=== PATIENT | male | born 1995 | race Caucasian/White ===

== ENCOUNTER 2024-01-29 11:11 | Emergency (ER) | payer SELFPAY ==
[2024-01-29 11:13] VITALS: BP 150/99
--- NOTE | 2024-01-29 12:52 | ED.GENMED ---
History of Present Illness
General
Chief Complaint: Skin Surface Trauma
Time Seen by Provider: 01/29/24 12:01
History of Present Illness
History of Present Illness:
28-year-old male presents to the emergency department for evaluation of a left thumb laceration sustained when attempting to slice paper with a large paper slicer. Bleeding is controlled with pressure. Last tetanus is unknown
Review of Systems
Review of Systems
Allergies reviewed?: Yes
All Other Systems: ROS reviewed and negative except as documented in HPI and ROS
Phy Exam
Physical Exam
Physical Exam:
GEN: Well appearing, NAD, WDWN
HEENT: Oral mucosa moist, no scleral icterus
Cardiac: Regular rate
Lung: No respiratory distress, no tachypnea
MSK: No gross deformity or injuries
Skin: Good color, no pallor or jaundice, no rashes. 1.5 cm curvilinear laceration through the distal aspect of the left thumb through the nailbed, no evidence of osseous injury on wound exploration, no foreign body
Neuro: AO x3, moves all extremities freely
Psych: Calm, cooperative
Course
Vital Signs
Initial and Last Documented VS:
Initial Vital Signs
Temp Pulse Resp BP Pulse Ox
98.2 F 63 16 150/99 98
01/29/24 11:13 01/29/24 11:13 01/29/24 11:13 01/29/24 11:13 01/29/24 11:13
Last Documented Vital Signs
Temp Pulse Resp BP Pulse Ox
98.2 F 63 16 150/99 98
01/29/24 11:13 01/29/24 11:13 01/29/24 11:13 01/29/24 11:13 01/29/24 11:13
Procedures
Laceration Closure
Left Thumb:
Status of Wound: clean
Size of Wound in cm: 1.5
Description of Wound Edges: sharp
Preparation: cleaned with soap & water
Anesthesia: 1% Lidocaine
Wound exploration: explored to base- no FB and no tendon involvement
Type of Closure: single layer closure
Skin Closure Material: 5-0 nylon
Number of sutures: 5
MDM/Problems Addressed
MDM/Problems Addressed:
Patient declines tetanus on account of Cost concerns due to lack of insurance which is not unreasonable given this is a low risk wound for tetanus exposure. No evidence of osseous injury on wound exploration, no indication for x-rays.
*Critical Care Note
Total Time (30-74mins, 75-104mins- exclusive of procedures): Not Applicable
ED Attending Note
-
Portions of this chart may have been created with voice recognition software.� Occasional wrong word or��sound alike� substitutions may have occurred due to the inherent limitations of voice recognition software.
Discharge Plan
Departure
Patient Disposition: Home (Routine Discharge)
Date of Disposition: 01/29/24
Time of Disposition: 12:52
Patient with high blood pressure during this ER visit?: No
Discharge Problem:
Laceration of left thumb
Instructions: Laceration Repair With Stitches (DC)
Referrals:
UNKNOWN - PT DOES,NOT KNOW [Family Provider] -
Activity Restrictions/Additional Instructions:
Keep the wound dry for the next 24 hours and then wash gently with soap and water
Suture removal in 7 to 10 days
Interventions
Interventions:
*Risk Screen - Suicide Last Done: 01/29/24 11:13
*Neglect/Abuse Screening Last Done: 01/29/24 11:13
*Nursing Disposition Last Done: 01/29/24 13:05
ED-Skin Assessment Last Done: 01/29/24 12:28
Discharge Date and Time
Discharge Date/Time: 01/29/24 13:05
Print Language: ARABIC
== END 2024-01-29 13:05 | disposition home or self-care (01) ==
LOC: EMR 11:11
PROVIDERS: EMERGENCY PHYSICIAN Emergency Medicine
DX: S61.012A Laceration without foreign body of left thumb without damage to nail, initial encounter (principal); W26.8XXA Contact with other sharp object(s), not elsewhere classified, initial encounter
CPT/HCPCS: 99282; 12001